=== PATIENT | female | born 1960 | race Caucasian/White ===

== ENCOUNTER 2025-05-15 07:26 | Day surgery (SDC) | payer OTHER ==
[2025-05-15 07:57] VITALS: PULSE 72; RESP 16
[2025-05-15 08:11] VITALS: BMI 27.4
[2025-05-15 09:20] VITALS: TEMP 97.4
[2025-05-15 09:46] VITALS: BP 109/61
== END 2025-05-15 09:54 | disposition home or self-care (01) ==
LOC: FASU-ENDO 07:26
PROVIDERS: ATTEND Internal Medicine Gastroenterology
PROC: 0DBN8ZZ Excision of Sigmoid Colon, Via Natural or Artificial Opening Endoscopic (ICD-10-PCS; principal; 2025-05-15 08:47)
DX: Z12.11 Encounter for screening for malignant neoplasm of colon (principal); D12.5 Benign neoplasm of sigmoid colon; K64.8 Other hemorrhoids
CPT/HCPCS: 88305-TC